=== PATIENT | male | born 1995 | race Caucasian/White ===

== ENCOUNTER 2017-04-15 19:12 | Emergency (ER) | payer BC ==
[~2017-04-15] VITALS: Ht 177.8 cm; Wt 88.0 kg
[2017-04-15 19:17] VITALS: TEMP 36.2; Ht 177.8 cm; Wt 88.0 kg
[2017-04-15] MEDS ORDERED: OXYCODONE HCL IR 5 MG TAB (IMMEDIATE RELEASE) PO STA (19:30)
[2017-04-15] MEDS ORDERED: OXYC1TAB3 PO (20:00)
[2017-04-15] MEDS ORDERED: OXYCODONE IR HOME PACK PO ONE (20:00)
[2017-04-15 20:15] VITALS: BP 108/75; PULSE 96; O2SAT 98
--- NOTE | 2017-04-15 20:23 | DIAGNOSTIC IMAGING REPORT ---
L ANKLE MIN 3 VIEWS ROUTINE CLINICAL HISTORY: L ankle injury trauma. Pain. COMPARISON: None. DISCUSSION: Oblique nondisplaced fracture distal fibula. Possible cortical fracture posterior malleolus. Medial malleolus is intact. No evidence for disruption of the ankle mortise. Moderate soft tissue edema. IMPRESSION: 1. Oblique nondisplaced fracture distal fibula. 2. Small nondisplaced cortical fracture posterior malleolus. The above report was generated using voice recognition software. It may contain grammatical, syntax or spelling errors. Electronically signed by: Eddie Holguin M.D. 04/15/2017 8:21 PM Dictated Date/Time: 04/15/2017 8:19 PM
--- NOTE | 2017-04-15 20:42 | EMERGENCY ROOM VISIT NOTE ---
History First contact with patient: 19:22 Chief Complaint: ANKLE PAIN Stated Complaint: SWOLLEN L ANKLE SLIPPED ON ICE History of Present Illness The patient is a 21 year old male who presents to the Emergency Room with complaints of rather severe left ankle pain. The patient reports that he was walking across ice when he slipped. His left foot was on dry pavement and continued to twist the ankle. He did not fall. He denies any pain extending into the leg or forefoot. He denies paresthesias or numbness of the left foot or toes. He rates his discomfort a 6 out of 10 at its escalated to a 10 out of 10 with weightbearing. Review of Systems 10 system review was performed and was negative except for pertinent positives and negatives as indicated in history of present illness Past Medical/Surgical History Medical Problems: (1) No significant past medical history Surgical Problems: (1) No history of previous surgery Family History Unremarkable Social History Smoking Status: Never Smoker Alcohol Use: occasionally Marital Status: single Occupation Status: [employer] student Current/Historical Medications Scheduled PRN Oxycodone Ir (Roxicodone Ir), 1-2 TAB PO Q4H PRN for Pain Physical Exam Vital Signs Date Time Temp Pulse Resp B/P (MAP) Pulse Ox O2 Delivery O2 Flow Rate FiO2 04/15/17 20:15 96 18 108/75 98 04/15/17 19:17 36.2 97 18 160/65 99 Room Air Physical Exam CONSTITUTIONAL: Healthy and well nourished. Alert and oriented X 3 with positive affect. Patient appears in moderate discomfort from pain. HEENT: Normocephalic, atraumatic. Pupils equal, round and reactive. NECK: Full active range of motion without discomfort. MUSCULOSKELETAL: Examination of the left ankle shows diffuse lateral edema about the distal fibula and lateral malleolus region. The patient is tender over the lateral malleolus. Minimal tenderness over the lateral ligament and deltoid ligament. Negative anterior draw. No focal tenderness over the dorsal midfoot, metatarsals, phalanges, calcaneus, Achilles tendon or proximal leg. Pedal pulses are intact. INTEGUMENTARY: No rash or other significant dermatologic conditions noted. NEUROLOGIC: Left foot and toes are sensory intact. Medical Decision & Procedures ER Provider Diagnostic Interpretation: My interpretation of left ankle x-rays confirms a bowel nail or fracture. Ankle mortise is symmetric with no patellar dislocation. Radiologist report is as follows: L ANKLE MIN 3 VIEWS ROUTINE CLINICAL HISTORY: L ankle injury trauma. Pain. COMPARISON: None. DISCUSSION: Oblique nondisplaced fracture distal fibula. Possible cortical fracture posterior malleolus. Medial malleolus is intact. No evidence for disruption of the ankle mortise. Moderate soft tissue edema. IMPRESSION: 1. Oblique nondisplaced fracture distal fibula. 2. Small nondisplaced cortical fracture posterior malleolus. Medications Administered Medications (Trade) Dose Ordered Sig/Jose C Route Start Time Stop Time Status Last Admin Dose Admin Oxycodone HCl (Roxicodone Immediate Rel Tab) 5 mg NOW STAT PO 04/15/17 19:30 04/15/17 19:31 DC 04/15/17 19:47 5 MG Oxycodone HCl (Roxicodone Immediate Rel 5MG Home Pack) 1 homepack UD ONCE PO 04/15/17 20:00 04/15/17 20:01 DC 04/15/17 20:13 1 HOMEPACK ED Course Patient history and physical exam were performed. Nurse's notes were reviewed. Vital signs were reviewed and were normal. The patient was administered OxyIR 5 mg for pain. X-rays of the left ankle confirms a bimalleolar fracture. A posterior Ortho-Glass splint and crutches were applied. Neurovascular check after stent placement was normal. The patient was provided a home pack and prescription for OxyIR 5 mg. He was also encouraged to alternate ibuprofen and Tylenol for additional baseline pain relief. She was instructed to follow- up with [facility] for further reevaluation and management. The patient was happy with plan of care, voiced understanding of all discharge instructions, and rated his discomfort a 4 out of 10 at the time of discharge. Medical Decision [place] Drug Monitoring Program Search Results: patient reviewed within database Medication Reconcilliation Current Medication List: was personally reviewed by ok Blood Pressure Screening Patient's blood pressure: Normal blood pressure Impression Primary Impression: Fracture of ankle, bimalleolar, left, closed Additional Impression: Fall due to slipping on ice or snow Departure Information Prescriptions Oxycodone Ir (Roxicodone Ir) 5 Mg Tab 1-2 TAB PO Q4H Y for Pain, #15 TAB For Initial Treatment Prov: Noam Chaudhary PA 04/15/17 Patient Instructions My [facility] Problem Qualifiers Primary Impression: Fracture of ankle, bimalleolar, left, closed Encounter type: initial encounter Qualified Codes: S82.842A - Displaced bimalleolar fracture of left lower leg, initial encounter for closed fracture
== END 2017-04-15 20:16 | disposition home or self-care (01) ==
LOC: C.EDB 19:15 → C.EDD 20:16
DX: S82.845A Nondisplaced bimalleolar fracture of left lower leg, initial encounter for closed fracture (principal); W18.49XA Other slipping, tripping and stumbling without falling, initial encounter; Y92.89 Other specified places as the place of occurrence of the external cause